=== PATIENT | male | born 1985 | race Caucasian/White ===

== ENCOUNTER 2020-11-22 15:43 | Emergency (ER) | payer SELFPAY ==
[~2020-11-22] VITALS: Ht 190.5 cm; Wt 93.0 kg
[2020-11-22 15:49] VITALS: BP_SYST 124
[2020-11-22 17:15] VITALS: BP_SYST 124
== END 2020-11-22 17:13 ==
LOC: SED 15:43
DX: Z48.01 Encounter for change or removal of surgical wound dressing (principal)
CPT/HCPCS: 99283